=== PATIENT | male | born 1995 | race Caucasian/White ===

== ENCOUNTER 2017-05-26 13:01 | Emergency (ER) | payer OTHER, MEDICAID | END 2017-05-26 15:24 | disposition home or self-care (01) | LOC: M ED 13:01 | DX: S01.01XA Laceration without foreign body of scalp, initial encounter (principal); W27.8XXA Contact with other nonpowered hand tool, initial encounter; Y92.59 Other trade areas as the place of occurrence of the external cause; Y99.0 Civilian activity done for income or pay; Z79.52 Long term (current) use of systemic steroids | CPT/HCPCS: 70450 ==

== ENCOUNTER 2017-06-01 12:21 | Emergency (ER) | payer OTHER | END 2017-06-01 13:18 | disposition home or self-care (01) | LOC: M ED 12:21 | DX: Z48.02 Encounter for removal of sutures (principal) | CPT/HCPCS: 99282 ==

== ENCOUNTER 2017-06-15 20:34 | Emergency (ER) | payer SELFPAY, OTHER | END 2017-06-15 21:15 | disposition home or self-care (01) | LOC: M ED 20:34 | DX: K58.0 Irritable bowel syndrome with diarrhea (principal) | CPT/HCPCS: 99282 ==